=== PATIENT | male | born 2005 | race Two or more races ===

== ENCOUNTER 2025-08-30 10:04 | Emergency (ER) | payer MEDICAID, OTHER ==
[~2025-08-30] VITALS: Ht 165.1 cm; Wt 70.6 kg
[2025-08-30 10:33] VITALS: BP 132/80; PULSE 84; RESP 18; TEMP 98.3; O2SAT 97
--- NOTE | 2025-08-30 10:39 | ED.PDOC ---
Back pain HPI HPI Comments A 19 YEAR OLD MALE PRESENTS TO THE ED WITH COMPLAINT OF LOWER BACK PAIN AND LEFT ANKLE PAIN. PATIENT STATES HE HAS BEEN EXPERIENCING LOWER BACK PAIN THAT RADIATES DOWN HIS RIGHT LEG OFF AND ON FOR THE PAST 1 MONTH.PATIENT NOTES HE WORKS AT [employer] AND DOES A LOT OF LIFTING, BENDING, AND STANDING. PATIENT REPORTS HE ALSO FELL 2 DAY AGO CAUSING HIM TO TWIST HIS LEFT ANKLE AND IS NOW ALSO EXPERIENCING LEFT ANKLE PAIN. PATIENT DENIES SADDLE ANESTHESIA, URINARY INCONTINENCE, BOWEL INCONTINENCE, HEAD INJURY, NECK INJURY, LOC, FEVER, CHILLS, SHORTNESS OF BREATH, CHEST PAIN, ABDOMINAL PAIN, NAUSEA, VOMITING, HEADACHE, OR OTHER COMPLAINTS. NO OTHER SYMPTOMS OR MODIFYING FACTORS AT THIS TIME. PATIENT IS ALERT, ORIENTED X 4, AND HAS STEADY GAIT. Chief Complaint: Back Pain Time Seen by MD: 10:07 Reviewed Notes: Nurses Notes, Medications, Allergies Allergies: Coded Allergies: NO KNOWN ALLERGIES (Unverified , 08/30/25) Home Meds Active Scripts Prednisone (Prednisone) 20 Mg Tab, 40 MG PO DAILY, #20 TAB Prov:LUIS SALAS 08/30/25 Ibuprofen (Ibuprofen) 800 Mg Tab, 1 TAB PO TID, #30 TAB Prov:LUIS SALAS 08/30/25 Information Source: Patient Mode of Arrival: Ambulatory Timing: Days, Weeks Duration: Since onset, Days Location of Back pain: (R) Lumbar Radiates to: Anterior: (R) Buttocks, (R) Calf, (R) Thigh Radiates to: Posterior: (R) Buttocks, (L) Calf, (R) Thigh Radiates to: Medial: (R) Buttocks, (R) Calf, (R) Thigh Radiates to: Lateral: (R) Buttocks, (R) Calf, (R) Thigh Severity: Moderate Prehospital treatment: None Quality: Aching, Cramping Onset: Spontaneous History of: None Modifying Factors: Movement Associated signs and symptoms: None Past Medical History PAST MEDICAL HISTORY: Denies Surgical History: Denies all surgeries Family History Family History: Reviewed,noncontributory to illness Social History Smoker: Non-Smoker Alcohol: Denies ETOH Use Drugs: Denies Drug Use Lives In: Home Constitutional: denies: chills, diaphoresis, fatigue, fever, malaise, sweats, weakness, others EENTM: denies: blurred vision, double vision, ear bleeding, ear discharge, ear drainage, ear pain, ear ringing, eye pain, eye redness, hearing loss, mouth pain, mouth swelling, nasal discharge, nose bleeding, nose congestion, nose pain, photophobia, tearing, throat pain, throat swelling, voice changes, others Respiratory: denies: cough, hemoptysis, orthopnea, SOB at rest, shortness of breath, SOB with excertion, stridor, wheezing, others Cardiovascular: denies: chest pain, dizzy spells, diaphoresis, Dyspnea on exertion, edema, irregular heart beat, left arm pain, lightheadedness, palpitations, PND, syncope, others Gastrointestinal: denies: abdomen distended, abdominal pain, blood streaked bowels, constipated, diarrhea, dysphagia, difficulty swallowing, hematemesis, melena, nausea, poor appetite, poor fluid intake, rectal bleeding, rectal pain, vomiting, others Genitourinary: denies: burning, dysuria, flank pain, frequency, hematuria, incontinence, penile discharge, penile sore, pain, testicle pain, testicle swelling, urgency, others Neurological: denies: dizziness, fainting, headache, left sided numbness, left sided weakness, numbness, paresthesia, pre-existing deficit, right sided numbness, right sided weakness, seizure, speech problems, tingling, tremors, weakness, others Musculoskeletal: reports: back pain, joint swelling, muscle pain, others (LEFT ANKLE PAIN); denies: gout, joint pain, muscle stiffness, neck pain Integumetry: reports: bruises (LEFT ANKLE ); denies: change in color, change in hair/nails, dryness, laceration, lesions, lumps, rash, wounds, others Allergic/Immunocompromised: denies: Difficulty Healing, Frequent Infections, Hives, Itching, others Hematologic/Lymphatic: denies: anemia, blood clots, easy bleeding, easy bruising, swollen glands, others Endocrine: denies: excessive hunger, excessive sweating, excessive thirst, excessive urination, flushing, intolerance to cold, intolerance to heat, unexplained weight gain, unexplained weight loss, others Psychiatric: denies: anxiety, bipolar disorder, depression, hopeless, panic disorder, schizophrenia, sleepless, suicidal, others All Other Systems: Reviewed and Negative Physical Exam General Appearance: No Apparent Distress, Normal HEENT: Normal ENT Inspection, PERRL/EOMI, Pharynx Normal, TMs Normal Neck: Full Range of Motion, Non-Tender, Normal, Normal Inspection Respiratory: Chest Non-Tender, Lungs Clear, No Accessory Muscle Use, No Respiratory Distress, Normal Breath Sounds Cardiovascular: No Edema, No JVD, No Murmur, No Gallop, Normal Peripheral Pulses, Regular Rate/Rhythm Breast Exam: Deferred Gastrointestinal: No Organomegaly, Non Tender, No Pulsatile Mass, Normal Bowel Sounds, Soft Genitalia: Deferred Pelvic: Deferred Rectal: Deferred Extremities: Decreased range of motion (SLIGHTLY. ), No calf tenderness, Normal capillary refill, No pedal edema, Swelling (TENDERNESS AND MILD SWELLING WITH CONTUSION ON LEFT ANKLE, NO BONY TENDERNESS AND DEFORMITY. ), Tender (AND CONTUSION ON LEFT ANKLE. ) Musculoskeletal : Location: Bilateral Extremity Location: Back Apperance: Tenderness (AND MUSCLE SPASM ON LOWER BACK, NO BONY TENDERNESS, SWELLING AND DEFORMITY. ) Neurologic: Alert, collar setter overlock II-XII nml as Tested, No Motor Deficits, Normal Affect, Normal Mood, No Sensory Deficits Cerebellar Function: Normal Reflexes: Normal Skin: Dry, Normal Color, Warm Peripheral Pulses: 2+ carotid (R), 2+ carotid (L), 2+ dorsalis pedis (R), 2+ dorsalis pedis (L) Lymphatic: No Adenopathy Was a procedure done? Was a procedure done?: No Back Pain Differential Dx Differential Diagnosis: Fracture, Musculoskeletal Pain Other Differential Diagnosis SPRAIN OF LEFT ANKLE, MUSCLE STRAIN, SCIATICA X-Ray, Labs, Meds, VS Vital Signs Date Time Temp Pulse Resp B/P (MAP) Pulse Ox O2 Delivery O2 Flow Rate FiO2 08/30/25 10:33 84 18 97 Room Air 08/30/25 10:33 98.3 84 18 132/80 (97) 97 98.3 08/30/25 10:07 98.3 84 18 132/80 97 98.3 X-Ray, Labs, Meds, VS Comment EXTERNAL MEDICAL RECORDS REVIEWED: [NONE] INDEPENDENT HISTORIANS: [NONE] SOCIAL DETERMINANTS OF HEALTH: [NONE] LABS ORDERED: NONE REVIEWED AND INTERPRETED RESULTS: NONE IMAGING ORDERED: XR ANKLE LT: [INTERPRETED BY ME. NO ACUTE FINDINGS. NO FRACTURES OR DISLOCATION. PENDING RADIOLOGIST REPORT.] XR L-SPINE: [INTERPRETED BY ME. NO ACUTE FINDINGS. NO FRACTURES OR DISLOCATION. PENDING RADIOLOGIST REPORT.] TREATMENTS ORDERED: TORADOL 60 MG IM PROCEDURES PERFORMED: NONE CRITICAL CARE TIME: NONE I HAVE DISCUSSED THE PATIENT WITH THE ATTENDING PHYSICIAN DR. HERNÁNDEZ AND HE AGREES WITH THE PATIENT'S PLAN OF CARE AND DISPOSITION. BASED ON HISTORY OF PRESENT ILLNESS, AND PHYSICAL EXAM, PATIENT WILL BE DISCHARGED HOME. DISCUSSED PLAN FOR DISCHARGE HOME WITH RX [IBUPROFEN 800 MG]. MEDICATION WARNINGS GIVEN. SHARED DECISION MAKING: DISCUSSED WITH PATIENT THAT THEIR WORKUP WAS NORMAL. PATIENT INSTRUCTED TO FOLLOW UP WITH PRIMARY CARE PROVIDER IN 1-2 DAYS FOR RE- EVALUATION OF SYMPTOMS. PATIENT VERBALIZES UNDERSTANDING TO RETURN TO ED FOR NEW OR WORSENING SYMPTOMS OR IF FOLLOW UP WITH PCP CANNOT BE OBTAINED. PATIENT FEELS COMFORTABLE GOING HOME AT THIS TIME. ALL QUESTIONS ADDRESSED AT TIME OF DISCH ARGE. Images Reviewed?: Images reviewed and evaluated by me Time of 1ST Reevaluation: 11:20 Reevaluation 1ST: Improved Patient Education/Counseling: Diagnosis, Treatment, Need For Follow Up Family Education/Counseling: Diagnosis, Treatment, Need For Follow Up Medical Screening: No EMC Exist At This Time SEPSIS Sepsis Screen Date sepsis recognized/suspect: Aug 30, 2025 Time Sepsis recognized/suspect: 1009 Recent Procedure: No On Antibiotic Therapy: No Respiratory Rate >20: No Heart Rate >90: No Temp<36 C (96.8 F) or >38.3 C: No SBP <90 or MAP <65 mmHG: No New Acute Mental Status Change: No Is the patient on CPAP, BIPAP,: No Physician Orders L Ankle 3 View (08/30/25 10:34) Lumbar Spine 3 View (08/30/25 10:34) Vital Signs Date Time Temp Pulse Resp B/P (MAP) Pulse Ox O2 Delivery O2 Flow Rate FiO2 08/30/25 10:33 84 18 97 Room Air 08/30/25 10:33 98.3 84 18 132/80 (97) 97 98.3 08/30/25 10:07 98.3 84 18 132/80 97 98.3 Departure 1 Departure Time of Disposition: 11:20 Impression: Primary Impression: Acute low back pain with right-sided sciatica Qualified Codes: M54.41 - Lumbago with sciatica, right side Additional Impression: Sprain of left ankle Qualified Codes: S93.402A - Sprain of unspecified ligament of left ankle, initial encounter Disposition: HOME / SELF CARE / HOMELESS Condition: Stable Additional Instructions: FOLLOW-UP WITH PCP IN 1 TO 2 DAYS. TAKE MEDICATIONS PRESCRIBED. RETURN TO ED FOR ANY NEW OR WORSENING SYMPTOMS. e-Prescriptions Prednisone (Prednisone) 20 Mg Tab 40 MG PO DAILY, #20 TAB Prov: LUIS SALAS 08/30/25 Ibuprofen (Ibuprofen) 800 Mg Tab 1 TAB PO TID, #30 TAB Prov: LUIS SALAS 08/30/25 Discharged With: Self Critical Care Note Critical Care Time?: No Stability Stability form required: No I personally scribed for LUIS SALAS ([email or web address]) on 08/30/25 at 10:39. Electronically submitted by Juwan Garcia ([email or web address]). I personally scribed for LUIS SALAS ([email or web address]) on 08/30/25 at 11:00. Electronically submitted by Juwan Garcia ([email or web address]). LUIS SALAS Aug 30, 2025 10:39
[2025-08-30] MEDS ORDERED: IBUP-1456 PO (11:03)
[2025-08-30] MEDS ORDERED: PRED20TA2 PO (11:03)
[2025-08-30] MEDS: KETOROLAC TROMETH 60MG/2ML VIAL IM ONE (11:08)
--- NOTE | 2025-08-30 11:11 | DVH ---
CLINICAL INDICATION: FALL TECHNIQUE: 3-view left ankle XY L ANKLE 3 VIEW COMPARISON: None FINDINGS/IMPRESSION: : There is no evidence of acute fracture or dislocation. Soft tissues are unremarkable.
--- NOTE | 2025-08-30 11:15 | DVH ---
EXAM: XY LUMBAR SPINE 3 VIEW HISTORY: LOW BACK PAIN TO RIGHT LOWER LEG COMPARISON: None TECHNIQUE: AP and lateral views of the lumbar spine a were performed. FINDINGS: 5 [id number] lumbar type vertebral bodies. The pedicles are intact. Sacroiliac joints are maintained. Visualized hip joints are maintained. The vertebral heights are maintained. Alignment is preserved. Disc spaces preserved. There is no acute fracture. Overlying soft tissues are intact visualized bowel gas is nonobstructed. A calcification projects over the right upper quadrant which were could reflect Cholelithiasis. IMPRESSION: 1. No acute fracture or traumatic malalignment. 2. Calcification projects over the right upper quadrant which could reflect cholelithiasis.
== END 2025-08-30 11:13 | disposition home or self-care (01) ==
LOC: ER 10:04
DX: S93.402A Sprain of unspecified ligament of left ankle, initial encounter (principal); M54.41 Lumbago with sciatica, right side; W18.39XA Other fall on same level, initial encounter; Y93.89 Activity, other specified; Y92.89 Other specified places as the place of occurrence of the external cause; Y99.8 Other external cause status
CPT/HCPCS: 72100; 73610; 96372; 99284; J1885